=== PATIENT | male | born 1945 | race Caucasian/White ===

== ENCOUNTER 2021-01-15 14:04 | Emergency (ER) | payer BC, SELFPAY ==
[2021-01-15 16:30] VITALS: BP 139/73; PULSE 47; RESP 16; TEMP 36.6; O2SAT 99; BMI 31.5
[2021-01-15 17:35] VITALS: PULSE 53; RESP 16; O2SAT 97
--- NOTE | 2021-01-15 17:40 | ED.ALLEREA ---
HPI - Allergic Reaction General Chief complaint: Eye Problems Stated complaint: Swollen eye, stung Time Seen by Provider: 01/15/21 17:00 Source: patient Mode of arrival: ambulatory Limitations: no limitations History of Present Illness HPI narrative: 76-year-old male presents for multiple insect stings and local reactions. Patient states he was stung on the right side of his nose, and has swelling in the right side of his face under his eye, patient states he was stung 2 or 3 times on volar surface of his left forearm. Patient states the bites are painful, red and swollen, but are not itchy. She did take 50 mg of Benadryl at 12:30 p.m. when bites occurred. 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 States in the past he was bitten by an unknown insect, brought to emergency room and given epinephrine. Denies throat swelling, tongue swelling, wheezing, shortness of breath, abdominal pain or nausea. Denies lightheadedness. MD complaint: allergic reaction Onset (ago): hour(s) (4) Exposure: insect bite Known history of allergy to: insects Symptoms: rash Severity: moderate Treatment prior to arrival: benadryl Previous Allergic Reaction History: prior ED visit(s) and anaphylaxis Related Data Previous Rx's Medication Instructions Recorded epinephrine 0.3 mg/0.3 mL 0.3 mg IM Q10M PRN #2 ea 01/15/21 injection, auto-injector famotidine 20 mg tablet 20 mg PO DAILY #14 tab 01/15/21 prednisone 20 mg tablet 60 mg PO DAILY 5 Days #15 tab 01/15/21 Allergies Allergy/AdvReac Type Severity Reaction Status Date / Time bee pollen [bee stings] Allergy Swelling Verified 01/15/21 17:38 cephalexin Allergy Stomach Verified 01/15/21 17:40 Upset Review of Systems Constitutional: Constitutional: Denies body ache(s), Denies chills, Denies fatigue, Denies fever(s), Denies headache(s), Denies malaise and Denies weakness Eyes: Eyes: Denies blurry vision, Denies change in vision and Denies diplopia ENT: Denies vertigo, Denies dizziness, Denies otalgia, Denies headache(s), Denies mouth pain, Denies post nasal drip, Denies sinus pain, Denies sinus pressure, Denies sore throat, Denies throat swelling and Denies tongue swelling Cardiovascular: Cardiovascular: Denies chest pain, Denies syncope, Denies leg edema, Denies lightheadedness, Denies Loss of Consciousness, Denies palpitations and Denies dyspnea Respiratory: Respiratory: Denies chest congestion, Denies cough, Denies dyspnea and Denies wheezing Gastrointestinal: Gastrointestinal: Reports abdominal pain, Denies hematochezia, Denies constipation, Denies diarrhea and Denies vomiting Musculoskeletal: Musculoskeletal: Reports no additional musculoskeletal complaints Integumentary/Breasts: Skin/Breast: Reports erythema, Reports rash, Reports skin pain and Reports skin swelling Neurologic: Denies confusion, Denies vertigo, Denies dizziness, Denies syncope, Denies headache(s) and Denies weakness Psychiatric: Psychiatric: Denies anxiety, Denies confusion and Denies depression Endocrine: Endocrine: Denies fatigue and Denies palpitations Allergic/Immunologic: Allergic/Immunologic: Denies throat swelling, Denies tongue swelling and Denies wheezing PMFSH Past Medical History Medical History Enlarged prostate High cholesterol Ulnar nerve abnormality Social History Social History Advance Directives: Yes Advance Directives Information Provided: No Advance Directives on File: No Physical Exam Vital Signs: Vital Signs: Last Vital Signs Temp 97.9 F 01/15/21 16:30 Pulse 53 01/15/21 17:35 Resp 16 01/15/21 17:35 BP 139/73 01/15/21 16:30 Pulse Ox 97 01/15/21 17:35 Body Mass Index 31.5 Const: General: No confusion Nutritional Appearance: well nourished Orientation/consciousness: No confusion Limitations: no limitations HENMT: Head: Yes normal to inspection, Yes normocephalic and Yes atraumatic Ears: hearing grossly normal bilaterally, external ears normal, TM's normal bilaterally and EAC's normal General nose exam: Normal external nose present Face and sinus: Yes normal facial exam and Yes sinuses nontender Mouth: Normal oral and palatal mucosa present Throat: Yes posterior oropharynx normal Eyes: Conjunctivae: conjunctivae normal Pupils: Equal, round and reactive pupils present EOM: EOMs intact bilaterally Neck: Neck: Yes full ROM, Yes no lymphadenopathy and Yes supple Resp: Effort & Inspection: normal respiratory effort and able to speak in complete sentences Auscultation: clear to auscultation bilaterally, no crackles, no rales, no rhonchi and no wheezes Cardio: Rate: regular rate Rhythm: regular rhythm Heart sounds: S1 normal heart sound present and S2 normal heart sound present GI: Inspection: Yes normal to inspection Palpation (GI): Soft to palpation, nontender, no guarding and not rigid Percussion: Yes normal to percussion Auscultation: normal bowel sounds Skin: Other: Redness and warmth on volar left forearm. Patient has edema under right eye, no periorbital swelling. I cannot appreciate any stingers left in skin, or any discrete insect bites. Neuro: General: No confusion Cranial nerves: Yes Equal, round and reactive pupils present Extrem: General: Yes normal to inspection and Yes full ROM Psych: Appearance: grossly normal Affect: normal affect Attitude: cooperative Thought process: Normal thought process present Course Course Course Narrative: 76-year-old male presents for local reaction after multiple insect bites. On exam, patient is a well-appearing, with redness and warmth on the left volar forearm and swelling under right thigh. No lip, tongue, periorbital swelling. Patient's lungs are clear to auscultation bilaterally, no wheezes. Abdomen soft and nontender. Patient given Benadryl, famotidine, prednisone here. It has been over 4 hours since patient is a 10, I do not think patient will have any anaphylaxis or angioedema, gave patient return precautions. I prescribed EpiPen, and was explicit with patient that he must call 911 prior to using. Consulted pt to follow-up with his primary care provider. Discharge Plan Discharge Clinical Impression: Allergic reaction Patient Disposition: Home, Self-Care Instructions: Insect Bite or Sting (ED), Anaphylaxis (ED) Additional Instructions: I have prescribed fmedications for you to your pharmacy, prednisone, Pepcid, and an EpiPen. You may buy Benadryl and taken [id number]. I would like you to call your primary care provider for follow-up appointment to be seen in 2 days. Because this event occurred more than 4 hours ago, and you are not having any signs of anaphylaxis, I not expect you to have anaphylaXIS.. However, shouldyou developed throat swelling, lip swelling or tongue swelling, if you become short of breath, become nauseous, or you feel dizzy, I would like you to return to the emergency room. Remember, if he ever needs to use your EpiPen, always call 911 FIRST, before you inject. Prescriptions: New prednisone 20 mg tablet 60 mg PO DAILY 5 Days Qty: 15 RF: 0 famotidine 20 mg tablet 20 mg PO DAILY Qty: 14 RF: 0 epinephrine 0.3 mg/0.3 mL auto-injector 0.3 mg IM Q10M PRN (Reason: anaphylaxis) Qty: 2 RF: 0
[2021-01-15] MEDS: Famotidine 20 MG TABLET PO (17:49)
[2021-01-15] MEDS: predniSONE 20 MG TABLET 60 MG PO (17:50)
[2021-01-15] MEDS: diphenhydrAMINE HCL 25 MG TABLET 50 MG PO (17:50)
== END 2021-01-15 18:13 | disposition home or self-care (01) ==
PROVIDERS: Emergency Provider Emergency Medicine Emergency Medical Services; PCP Hospitalist
DX: T78.40XA Allergy, unspecified, initial encounter (principal); R60.9 Edema, unspecified; X58.XXXA Exposure to other specified factors, initial encounter
CPT/HCPCS: 99283; 99284; Q0163